=== PATIENT | male | born 1995 | race Caucasian/White ===

== ENCOUNTER 2025-02-13 12:22 | Emergency (ER) | payer SELFPAY ==
[2025-02-13 12:24] VITALS: BP 123/83
--- NOTE | 2025-02-13 13:36 | ED.GENMED ---
History of Present Illness
General
Chief Complaint: Skin Surface Trauma
Source: patient
Exam Limitations: none
Time Seen by Provider: 02/13/25 13:18
Nursing documentation reviewed up to this point in time: agreed with
History of Present Illness
History of Present Illness:
see MDM
Phy Exam
Physical Exam
Physical Exam:
see MDM
Course
Orders/Labs/Results
Orders:
Orders
02/13/25 13:30
Tetanus/Diphth/Acelpertussis [Adacel] 0.5 ml IM .ONCE ONE
Vital Signs
Initial and Last Documented VS:
Initial Vital Signs
Temp Pulse Resp BP Pulse Ox
36.6 C 69 18 123/83 98
02/13/25 12:24 02/13/25 12:24 02/13/25 12:24 02/13/25 12:24 02/13/25 12:24
Last Documented Vital Signs
Temp Pulse Resp BP Pulse Ox
36.6 C 69 18 123/83 98
02/13/25 12:24 02/13/25 12:24 02/13/25 12:24 02/13/25 12:24 02/13/25 13:37
MDM/Problems Addressed
Differential Diagnosis Includes:
arcelia MDM
MDM/Problems Addressed:
Note:
CHIEF COMPLAINT(S)
Laceration on finger.
HISTORY OF PRESENT ILLNESS
The patient is a 29-year-old male who presented with a laceration on his finger sustained at work while trying to open something. The incident occurred today, and the patient is right-handed. 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
shot was administered, prompting consideration for tetanus prophylaxis. The patient expressed concern about potential pain and was advised that the injury would be treated with Steri-Strips and medical adhesive (glue) to promote healing. The patient
was instructed to avoid using the affected hand for two days to prevent contamination and ensure proper healing, during which he should refrain from getting the injury wet. He expressed curiosity about returning to work, and it was suggested that he
could use his left hand if necessary, but avoiding the work environment for two days was recommended to allow proper healing. The patient reported tenderness upon touching the injury but no burning sensation from the glue.
PHYSICAL EXAM
- Nursing notes reviewed and vital signs reviewed.
GENERAL: Alert , in no apparent distress, comfortable at rest
HEAD: NCAT
CV: < 2 sec cap refill
radial pulse normal
NEUROLOGICAL: Alert and oriented, no focal neuro deficits, , 5/5 strength, sensation intact, ambulation slight limp right leg
SKIN: Warm and dry, linear superficial laceration 1.5 cm to distal L index finger;
MUSCULOSKELETAL: tender distla fingertip of the L index where laceration is
full ROM
normal esnsation
normal strength
PSYCH: Normal and appropriate interaction.
PLAN
1. Apply Steri-Strips and glue to the laceration.
2. Instruct the patient to avoid getting the wound wet for 48 hours.
3. Advise against using the affected hand for two days and recommend a bulky dressing for protection.
4. Suggest a follow-up with workmans compensation if prolonged absence is needed.
5. Consideration of a tetanus booster due to uncertain vaccination status.
DIFFERENTIAL DIAGNOSIS
The Differential Diagnosis includes, in no particular order and is not limited to:
1. Laceration
2. Tendon injury
3. Fracture
4. Contusion
5. Infection (if not properly cleaned or monitored)
6. Nerve injury
7. Ligament injury
8. Hematoma formation
9. Foreign body retention
10. Adhesive allergy/reaction
Superficial laceration to the left index finger from a knife while at work. Patient has normal neurovascular exam. Tetanus was updated here. Laceration was irrigated and closed with glue and Steri-Strips. Wound care instructions given
*Pulse Oximetry
SaO2: 98
Oxygen Mode of Delivery: Room air
Patient hypoxic: no (98)
*Critical Care Note
Total Time (30-74mins, 75-104mins- exclusive of procedures): Not Applicable
ED Attending Note
-
Portions of this chart may have been created with voice recognition software.� Occasional wrong word or��sound alike� substitutions may have occurred due to the inherent limitations of voice recognition software.
Discharge Plan
Departure
Patient Disposition: Home (Routine Discharge)
Date of Disposition: 02/13/25
Time of Disposition: 13:39
Patient with high blood pressure during this ER visit?: No
Covid-19: Not Applicable
Discharge Problem:
Finger laceration
Instructions: Laceration Repair With Glue (DC)
Stand Alone Forms: Return to Work
Activity Restrictions/Additional Instructions:
KEEP THE WOUND CLEAN AND DRY FOR 48 HOURS
AFTER THAT YOU CAN GET IT WET IN THE BATH/SHOWER ONCE A DAY AND MAKE SURE IT IS CLEAN AND THERE IS NO DRIED BLOOD ON THE STITCHES
APPLY NEOSPORIN AND A BANDAID
WATCH FOR SIGNS OF INFECTION AND RETURN NEEDED FOR PAIN, SWELLING, REDNESS, DRAINAGE, BLEEDING.
MOTRIN NEEDED FOR PAIN.
Interventions
Interventions:
*Nursing Disposition Last Done: 02/13/25 13:50
ED-Skin Assessment Last Done: 02/13/25 13:51
Discharge Date and Time
Discharge Date/Time: 02/13/25 13:51
Print Language: GUAMANIAN
[2025-02-13] MEDS: ADACEL 0.5 ML IM (13:40)
== END 2025-02-13 13:51 | disposition home or self-care (01) ==
LOC: EMR 12:22
PROVIDERS: EMERGENCY PHYSICIAN Emergency Medicine
DX: S61.211A Laceration without foreign body of left index finger without damage to nail, initial encounter (principal); W26.0XXA Contact with knife, initial encounter; Y99.0 Civilian activity done for income or pay; Z23 Encounter for immunization
CPT/HCPCS: 90471; 12001; 99282; 90715